=== PATIENT | male | born 2000 | race Caucasian/White ===

== ENCOUNTER 2020-08-21 10:07 | Emergency (ER) | payer MEDICAID ==
[~2020-08-21] VITALS: Ht 177.8 cm; Wt 90.2 kg
[2020-08-21] MEDS ORDERED: ONDANSETRON 2MG/ML, 2ML ONE (10:48)
--- NOTE | 2020-08-21 10:53 | NUR ---
PT MEDICATED ORDERED. PT REFUSED DIALUDID AND REPORTS HE IS NOT HAVING ANY PAIN. PT P/W "SHAKINESS" AND [place]A SINCE EARLY THIS AM. PT REPORTS DRINKING HEAVILY WITH LAST DRINK AT 0230 AM.
[2020-08-21 10:55] LABS: BASOPHILS % (AUTO) 1 % (0-1); EOSINOPHILS % (AUTO) 3 % (1-7); LYMPHOCYTES % (AUTO) 31 % (22-44); MEAN CORPUSCULAR HEMOGLOBIN 29.1 pg (27.5-34.5); MEAN CORPUSCULAR HGB CONC 33.5 g/dL (33.2-36.2); MEAN PLATELET VOLUME 9.1 fL (7.4-10.4); MONOCYTES % (AUTO) 7 % (2-9); NEUTROPHILS % (AUTO) 58 % (42-75); PLATELET COUNT 237 x10^3/uL (130-400); RED BLOOD COUNT 5.05 x10^6/uL (4.38-5.82); RED CELL DISTRIBUTION WIDTH 12.5 % (9.4-14.8)
[2020-08-21 11:00] LABS: MD NO
[2020-08-21] MEDS ORDERED: HYDROmorphone 2 MG/ML, 1ML IVPush PRN (11:00)
[2020-08-21] MEDS ORDERED: SODIUM CHLORIDE FLUSH 10ML SYR IVF ONE (11:00)
[2020-08-21] MEDS ORDERED: ONDANSETRON 2MG/ML, 2ML IVPush ONE (11:00)
[2020-08-21 11:08] LABS: ALANINE AMINOTRANSFERASE 23 U/L (12-78); ALBUMIN 4.5 g/dL (3.4-5.0); ANION GAP 6 mmol/L (5-15); CALCIUM 9.3 mg/dL (8.5-10.1); CHLORIDE 108 mmol/L (98-107); GAMMA GLUTAMYL TRANSPEPTIDASE 19 U/L (15-85)
[2020-08-21 11:10] LABS: ALKALINE PHOSPHATASE 86 U/L (45-117); BILIRUBIN,TOTAL 1.2 mg/dL (0.2-1.0)
[2020-08-21] MEDS ORDERED: THIAMINE 100 MG in SODIUM CHLORIDE 0.9% 50 ML IVPB ONE (11:30)
[2020-08-21] MEDS ORDERED: SODIUM CHLORIDE 0.9% 1,000ML IVBOLUS ONE (11:30)
[2020-08-21] MEDS ORDERED: LORazepam 2 MG/ML, 1ML IVPush ONE (11:38)
[2020-08-21] MEDS ORDERED: LORazepam 2 MG/ML, 1ML ONE (11:41)
[2020-08-21] MEDS ORDERED: MAALOX/HYOSCYAMINE/LIDOCAINE 45 ML BTL ONE (11:48)
[2020-08-21] MEDS ORDERED: MAALOX/HYOSCYAMINE/LIDOCAINE 45 ML BTL PO ONE (12:00)
--- NOTE | 2020-08-21 12:30 | NUR ---
PT REPORTS FEELING MUCH BETTER AFTER ATIVAN, GI COCKTAIL, AND FLUIDS. WAITING FOR DC PAPERWORK.
--- NOTE | 2020-08-21 13:13 | NUR ---
REPORT TO USMAN Lehman RN.
[2020-08-21 13:41] VITALS: BP 120/56
== END 2020-08-21 13:43 | disposition home or self-care (01) ==
LOC: ED 11:12
DX: K29.20 Alcoholic gastritis without bleeding (principal); F41.9 Anxiety disorder, unspecified
CPT/HCPCS: 36415; 80053; 82977; 83605; 83690; 85025; 96365; 96375; 99284; J2060; J2405; J3411; J7030